=== PATIENT | female | born 1985 | race Caucasian/White ===

== ENCOUNTER 2019-02-19 19:49 | Emergency (ER) | payer OTHER ==
[2019-02-19] MEDS ORDERED: Albuterol/Ipratropium Neb 3 ML AERS HHN ONE ×3 (19:55→20:20)
--- NOTE | 2019-02-19 20:14 | ED Physician Chart ---
ED Chief Complaint/HPI - Patient Information Date Seen:: 02/19/19 Time Seen:: 20:09 Chief Complaint:: asthma exacerbation History of Present Illness:: 34 yr old female with trouble breathing hx of asthma was at the urgent care today and to start prednisone tomorrow Allergies:: Allergies Allergy/AdvReac Type Severity Reaction Status Date / Time No Known Allergies Allergy Verified 02/19/19 20:02 Vitals:: Vital Signs - 8 hr 02/19/19 02/19/19 19:50 19:56 Temp 98.1 F HR 101 104 RR 24 22 BP 146/99 O2 Sat % 98 98 ED Review of Systems - Review of Systems General/Constitutional: No fever, No chills, No weight loss, No weakness, No diaphoresis, No edema, No loss of appetite Skin: No skin lesions, No rash, No bruising Head: No headache, No light-headedness Eyes: No loss of vision, No pain, No diplopia ENT: No earache, No nasal drainage, No sore throat, No tinnitus Neck: No neck pain, No swelling, No thyromegaly, No stiffness, No mass noted Cardio Vascular: No chest pain, No palpitations, No PND, No orthopnea, No edema Pulmonary: Cough, Wheezing GI: No nausea, No vomiting, No diarrhea, No pain, No melena, No hematochezia, No constipation, No hematemesis G/U: No dysuria, No frequency, No hematuria Musculoskeletal: No bone or joint pain, No back pain, No muscle pain Endocrine: No polyuria, No polydipsia Psychiatric: No prior psych history, No depression, No anxiety, No suicidal ideation Hematopoietic: No bruising, No lymphadenopathy Allergic/Immuno: No urticaria, No angioedema Neurological: No syncope, No focal symptoms, No weakness, No paresthesia, No headache, No seizure, No dizziness, No confusion, No vertigo ED Past Medical History - Past Medical History Past Medical History: Asthma/COPD Family Medical History - Family Member Father Name:: brain cancer uncle Hx Family Diabetes: Yes Other Medical History: asthma ED Physical Exam - Physical Examination General/Constitutional: Awake, Well-developed, well-nourished, Alert, No distress, GCS 15, Non-toxic appearing, Ambulatory Other Gen/Cons comments:: mild resp distress secondary to the asthma Head: Atraumatic Eyes: Lids, conjuctiva normal, PERRL, EOMI Skin: Nl inspection, No rash, No skin lesions, No ecchymosis, Well hydrated, No lymphadenopathy ENMT: External ears, nose nl, Nasal exam nl, Lips, teeth, gums nl Neck: Nontender, Full ROM w/o pain, No JVD, No nuchal rigidity, No bruit, No mass, No stridor Respiratory: Nl effort/Exclusion, Clear to Auscultation, No Wheeze/Rhonchi/Rales Cardio Vascular: RRR, No murmur, gallop, rubs, NL S1 S2 GI: No tenderness/rebounding/guarding, No organomegaly, No hernia, Normal BS's, Nondistended, No mass/bruits, No McBurney tenderness : No CVA tenderness Extremities: No tenderness or effusion, Full ROM, normal strength in all extremities, No edema, Normal digits & nails Neuro/Psych: Alert/oriented, DTR's symmetric, Normal sensory exam, Normal motor strength, Judgement/insight normal, Mood normal, Normal gait, No focal deficits Misc: Normal back, No paraspinal tenderness ED Assessment - Assessment General Assessment: asthma exacerbation ED Septic Shock - . Is Septic Shock (SBP<90, OR Lactate>4 mmol\L) present?: No - <6hrs of presentation: Vital Signs: Vital Signs - 8 hr 02/19/19 02/19/19 19:50 19:56 Temp 98.1 F HR 101 104 RR 24 22 BP 146/99 O2 Sat % 98 98 ED Reassessment (Disposition) - Reassessment Reassessment:: asthma exacerbation - Diagnosis Diagnosis:: asthma exacerbation - Aftercare/Follow up Instructions Medication Prescribed:: zpack - Patient Disposition Discharge/Transfer:: Home Condition at Disposition:: Stable
[2019-02-19] MEDS ORDERED: Dexamethasone Sodium Phos 4 mg/mL Vial INH STA (20:16)
[2019-02-19] MEDS ORDERED: Dexamethasone Sodium Phos 4 mg/mL Vial ONE (20:26)
== END 2019-02-19 21:00 | disposition home or self-care (01) ==
LOC: ER 19:49
DX: J45.901 Unspecified asthma with (acute) exacerbation (principal)
CPT/HCPCS: 99285; 96372; 94640 ×3; 81025; J1100; J2930

== ENCOUNTER 2019-02-25 15:09 | Inpatient (IN) | payer OTHER ==
--- NOTE | 2019-02-25 15:36 | ED Physician Chart ---
ED Chief Complaint/HPI - Patient Information Date Seen:: 02/25/19 Time Seen:: 15:30 Chief Complaint:: asthma attack History of Present Illness:: this is a 34 yo female who is concerned about her asthma attack after being sent here from an urgent care clinic for more definitive treatment. 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 she denies pneumonia but has a long history of allergies to cockroaches. Allergies:: Allergies Allergy/AdvReac Type Severity Reaction Status Date / Time No Known Allergies Allergy Verified 02/19/19 20:02 Vitals:: Vital Signs - 8 hr 02/25/19 15:16 Temp 98.0 F HR 135 RR 16 BP 135/82 O2 Sat % 96 Historian:: Patient Review:: Nurse's Note Reviewed, Old Chart Reviewed ED Review of Systems - Review of Systems General/Constitutional: No fever, No chills, No weight loss, No weakness, No diaphoresis, No edema, No loss of appetite Skin: No skin lesions, No rash, No bruising Head: No headache, No light-headedness Eyes: No loss of vision, No pain, No diplopia ENT: No earache, No nasal drainage, No sore throat, No tinnitus Neck: No neck pain, No swelling, No thyromegaly, No stiffness, No mass noted Cardio Vascular: No chest pain, No palpitations, No PND, No orthopnea, No edema Pulmonary: No SOB, Cough, No sputum, Wheezing GI: No nausea, No vomiting, No diarrhea, No pain, No melena, No hematochezia, No constipation, No hematemesis G/U: No dysuria, No frequency, No hematuria Musculoskeletal: No bone or joint pain, No back pain, No muscle pain Endocrine: No polyuria, No polydipsia Psychiatric: No prior psych history, No depression, No anxiety, No suicidal ideation Hematopoietic: No bruising, No lymphadenopathy Allergic/Immuno: No urticaria, No angioedema Neurological: No syncope, No focal symptoms, No weakness, No paresthesia, No headache, No seizure, No dizziness, No confusion, No vertigo ED Past Medical History - Past Medical History Obtainable: Yes Past Medical History: Asthma/COPD Family History: None Social History: Non Smoker, No Alcohol, No Drug Use, Surgical History: other (liposculpture) Psychiatricy History: None Medication: Reviewed Family Medical History - Family Member Father History Unknown: Yes Hx Family Diabetes: Yes ED Physical Exam - Physical Examination General/Constitutional: Awake, Well-developed, well-nourished, Alert, No distress, GCS 15, Non-toxic appearing, Ambulatory Head: Atraumatic Eyes: Lids, conjuctiva normal, PERRL, EOMI Skin: Nl inspection, No rash, No skin lesions, No ecchymosis, Well hydrated, No lymphadenopathy ENMT: External ears, nose nl, Nasal exam nl, Lips, teeth, gums nl Neck: Nontender, Full ROM w/o pain, No JVD, No nuchal rigidity, No bruit, No mass, No stridor Respiratory: Nl effort/Exclusion, Clear to Auscultation, No Wheeze/Rhonchi/ Rales (few wheezes heard bilaterally) Cardio Vascular: RRR, No murmur, gallop, rubs, NL S1 S2 GI: No tenderness/rebounding/guarding, No organomegaly, No hernia, Normal BS's, Nondistended, No mass/bruits, No McBurney tenderness : No CVA tenderness Extremities: No tenderness or effusion, Full ROM, normal strength in all extremities, No edema, Normal digits & nails Neuro/Psych: Alert/oriented, DTR's symmetric, Normal sensory exam, Normal motor strength, Judgement/insight normal, Mood normal, Normal gait, No focal deficits Misc: Normal back, No paraspinal tenderness ED Labs/Radiology/EKG Results - Lab Results Results: Abnormal Lab Results 02/25/19 02/25/19 02/25/19 15:40 15:40 15:40 WBC 14.2 H RBC 4.87 Hgb 13.8 Hct 42.1 MCV 86.5 MCH 28.4 MCHC Differential 32.8 RDW 12.6 Plt Count 347 MPV 7.5 Add Manual Diff YES D-Dimer 227 Specimen Source Sample Site pH pCO2 pO2 HCO3 Base Excess O2 Saturation Marquise Test Vent Rate Inspired O2 Tidal Volume PEEP Pressure (ins/psv/peep) Critical Value Sodium 134 L Potassium 3.3 L Chloride 101 Carbon Dioxide 19.1 L Anion Gap 17.2 H BUN 13 Creatinine 0.9 Est GFR ( Amer) > 60.0 Est GFR (Non-Af Amer) > 60.0 BUN/Creatinine Ratio 14.4 Glucose 311 H Calcium 9.3 Total Bilirubin 0.4 AST 11 L ALT 13 Alkaline Phosphatase 85 Troponin I Total Protein 7.5 Albumin 4.5 Globulin 3.0 Albumin/Globulin Ratio 1.5 TSH Urine Source Urine Color Urine Clarity Urine pH Ur Specific [place] Urine Protein Urine Glucose (UA) Urine Ketones Urine Blood Urine Nitrate Urine Bilirubin Urine Urobilinogen Ur Leukocyte Esterase Urine RBC Urine WBC Ur Epithelial Cells Urine Bacteria Urine Test Urine Opiates Screen Urine Methadone Screen Ur Barbiturates Screen Ur Tricyclics Screen Ur Phencyclidine Scrn Amphetamines Screen U Methamphetamines Scrn U Benzodiazepines Scrn U Cocaine Metab Screen U Cannabinoids Screen Serum Ketones 02/25/19 02/25/19 02/25/19 15:40 15:40 15:45 WBC RBC Hgb Hct MCV MCH MCHC Differential RDW Plt Count MPV Add Manual Diff D-Dimer Specimen Source Sample Site pH pCO2 pO2 HCO3 Base Excess O2 Saturation Marquise Test Vent Rate Inspired O2 Tidal Volume PEEP Pressure (ins/psv/peep) Critical Value Sodium Potassium Chloride Carbon Dioxide Anion Gap BUN Creatinine Est GFR ( Amer) Est GFR (Non-Af Amer) BUN/Creatinine Ratio Glucose Calcium Total Bilirubin AST ALT Alkaline Phosphatase Troponin I < 0.01 L Total Protein Albumin Globulin Albumin/Globulin Ratio TSH 0.72 Urine Source Urine Color Urine Clarity Urine pH Ur Specific [place] Urine Protein Urine Glucose (UA) Urine Ketones Urine Blood Urine Nitrate Urine Bilirubin Urine Urobilinogen Ur Leukocyte Esterase Urine RBC Urine WBC Ur Epithelial Cells Urine Bacteria Urine Test NEGATIVE Urine Opiates Screen Urine Methadone Screen Ur Barbiturates Screen Ur Tricyclics Screen Ur Phencyclidine Scrn Amphetamines Screen U Methamphetamines Scrn U Benzodiazepines Scrn U Cocaine Metab Screen U Cannabinoids Screen Serum Ketones 02/25/19 02/25/19 02/25/19 15:45 17:37 18:05 WBC RBC Hgb Hct MCV MCH MCHC Differential RDW Plt Count MPV Add Manual Diff D-Dimer Specimen Source Sample Site pH pCO2 pO2 HCO3 Base Excess O2 Saturation Marquise Test Vent Rate Inspired O2 Tidal Volume PEEP Pressure (ins/psv/peep) Critical Value Sodium 135 L Potassium 4.5 Chloride 105 Carbon Dioxide 15.7 L Anion Gap 18.8 H BUN 12 Creatinine 0.9 Est GFR ( Amer) > 60.0 Est GFR (Non-Af Amer) > 60.0 BUN/Creatinine Ratio 13.3 Glucose 271 H Calcium 9.6 Total Bilirubin AST ALT Alkaline Phosphatase Troponin I Total Protein Albumin Globulin Albumin/Globulin Ratio TSH Urine Source CLEAN C Urine Color YELLOW Urine Clarity CLEAR Urine pH 5.5 Ur Specific [place] 1.025 Urine Protein NEGATIVE Urine Glucose (UA) >=1000 H Urine Ketones 40 H Urine Blood SMALL H Urine Nitrate NEGATIVE Urine Bilirubin NEGATIVE Urine Urobilinogen 0.2 Ur Leukocyte Esterase SMALL H Urine RBC 2-5 Urine WBC 6-10 H Ur Epithelial Cells MODERATE Urine Bacteria 1+ H Urine Test Urine Opiates Screen NEGATIVE Urine Methadone Screen NEGATIVE Ur Barbiturates Screen NEGATIVE Ur Tricyclics Screen NEGATIVE Ur Phencyclidine Scrn NEGATIVE Amphetamines Screen NEGATIVE U Methamphetamines Scrn NEGATIVE U Benzodiazepines Scrn NEGATIVE U Cocaine Metab Screen NEGATIVE U Cannabinoids Screen NEGATIVE Serum Ketones 02/25/19 02/25/19 18:47 19:00 WBC RBC Hgb Hct MCV MCH MCHC Differential RDW Plt Count MPV Add Manual Diff D-Dimer Specimen Source ARTERIAL Sample Site Right Radial pH 7.467 H pCO2 22.0 L* pO2 96.9 HCO3 15.5 L Base Excess -5.8 L O2 Saturation 97.9 Marquise Test Positive Vent Rate N/A Inspired O2 21 Tidal Volume N/A PEEP N/A Pressure (ins/psv/peep) N/A 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,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 Sodium Potassium Chloride Carbon Dioxide Anion Gap BUN Creatinine Est GFR ( Amer) Est GFR (Non-Af Amer) BUN/Creatinine Ratio Glucose Calcium Total Bilirubin AST ALT Alkaline Phosphatase Troponin I Total Protein Albumin Globulin Albumin/Globulin Ratio TSH Urine Source Urine Color Urine Clarity Urine pH Ur Specific [place] Urine Protein Urine Glucose (UA) Urine Ketones Urine Blood Urine Nitrate Urine Bilirubin Urine Urobilinogen Ur Leukocyte Esterase Urine RBC Urine WBC Ur Epithelial Cells Urine Bacteria Urine Test Urine Opiates Screen Urine Methadone Screen Ur Barbiturates Screen Ur Tricyclics Screen Ur Phencyclidine Scrn Amphetamines Screen U Methamphetamines Scrn U Benzodiazepines Scrn U Cocaine Metab Screen U Cannabinoids Screen Serum Ketones NEGATIVE - Radiology Results Results: chest x-ray = normal chest x-ray - EKG Interpretations EKG Time:: 16:06 Rate & Rhythm: rate= 124, sinus tach [place]: right ED Assessment - Assessment General Assessment: chest pain tachycardia acidosis urinary tract infection ED Septic Shock - . Is Septic Shock (SBP<90, OR Lactate>4 mmol\L) present?: No - <6hrs of presentation: Vital Signs: Vital Signs - 8 hr 02/25/19 15:16 Temp 98.0 F HR 135 RR 16 BP 135/82 O2 Sat % 96 ED Reassessment (Disposition) - Reassessment Reassessment Condition:: Improved - Diagnosis Diagnosis:: chest pain acicosis urinary tract infection diabetes mellitus - Patient Disposition Discharge/Transfer:: Acute Care w/in this hosp Admitted to:: Telemetry Admitting Medical Physician:: Brenda Pierce Condition at Disposition:: Improved
[2019-02-25 15:56] LABS: URINE SOURCE CLEAN C
[2019-02-25 15:56] LABS: HEMATOCRIT 42.1 % (41.0-60); HEMOGLOBIN 13.8 gm/dL (12-16); MEAN CELL VOLUME 86.5 fl (81-100); MEAN CORPUSCULAR HEMOGLOBIN 28.4 pg (27.0-31.0); MEAN CORPUSCULAR HGB CONC 32.8 pg (28.0-36.0); MEAN PLATELET VOLUME 7.5 fl; PLATELET COUNT 347 Th/cmm (150-400); RED BLOOD COUNT 4.87 Mil/cmm (3.80-5.10); RED CELL DISTRIBUTION WIDTH 12.6 % (11.5-20.0); WHITE BLOOD COUNT 14.2 Th/cmm (4.8-10.8)
[2019-02-25 16:05] LABS: URINE CLARITY CLEAR (CLEAR); URINE COLOR YELLOW
[2019-02-25 16:06] LABS: URINE BLOOD SMALL (NEGATIVE); URINE GLUCOSE (UA) >=1000 mg/dL (NEGATIVE); URINE KETONE 40 mg/dL (NEGATIVE); URINE LEUKOCYTE ESTERASE SMALL (NEGATIVE); URINE MICROSCOPIC INDICATED? YES; URINE NITRATE NEGATIVE (NEGATIVE); URINE PH 5.5 (4.6 - 8.0); URINE PROTEIN NEGATIVE (NEGATIVE); URINE UROBILINOGEN 0.2 E.U./dL (0.2 - 1.0)
[2019-02-25 16:07] LABS: URINE BILIRUBIN NEGATIVE (NEGATIVE)
[2019-02-25 16:09] LABS: URINE BACTERIA 1+ /hpf (NONE SEEN); URINE EPITHELIAL CELLS MODERATE /lpf (FEW)
[2019-02-25 16:17] LABS: ALB/GLOB RATIO 1.5 (1.0-1.8); ALBUMIN 4.5 gm/dL (3.7-5.3); ALKALINE PHOSPHATASE 85 U/L (34-104); ANION GAP 17.2 (7.0-16.0); BILIRUBIN,TOTAL 0.4 mg/dL (0.3-1.0); BUN - UREA NITROGEN 13 mg/dL (7-25); CALCIUM SERUM 9.3 mg/dL (8.6-10.3); CARBON DIOXIDE 19.1 mEq/L (21.0-31.0); CHLORIDE 101 mEq/L (98-107); CREATININE - SERUM 0.9 mg/dL (0.6-1.2); GFR AFRICAN-AMERICAN > 60.0 ml/min (>90); GFR NON AFRICAN-AMERICAN > 60.0 ml/min; GLUCOSE 311 mg/dL (70-105); POTASSIUM SERUM 3.3 mEq/L (3.5-5.1); SGOT 11 U/L (13-39); SGPT/ALT 13 U/L (7-52); SODIUM SERUM 134 mEq/L (136-145); TOTAL PROTEIN,SERUM 7.5 gm/dL (6.0-8.3)
[2019-02-25] MEDS ORDERED: Potassium Chloride Elixir 20 mEq /15 mL UDC PO ONE (16:22)
[2019-02-25] MEDS ORDERED: Sodium Chloride 0.45% 1,000 ML IV ONE (16:22)
[2019-02-25] MEDS ORDERED: Potassium Chloride Elixir 20 mEq /15 mL UDC ONE (16:25)
[2019-02-25 18:00] LABS: AMPHETAMINE URINE NEGATIVE (NEGATIVE); BARBITURATES URINE NEGATIVE (NEGATIVE); PHENCYCLIDINE (PCP) URINE NEGATIVE (NEGATIVE)
[2019-02-25 18:01] LABS: BENZODIAZEPINES QUAL URINE NEGATIVE (NEGATIVE); CANNABINOID THC NEGATIVE (NEGATIVE); COCAINE METABOLITE QUAL URINE NEGATIVE (NEGATIVE); METHADONE URINE NEGATIVE (NEGATIVE); METHAMPHETAMINES QUAL URINE NEGATIVE (NEGATIVE); OPIATES (MORPHINE) QUAL. URINE NEGATIVE (NEGATIVE); TRICYCLICS (TCA) QUAL. URINE NEGATIVE (NEGATIVE)
[2019-02-25 18:24] LABS: ANION GAP 18.8 (7.0-16.0); BUN - UREA NITROGEN 12 mg/dL (7-25); CALCIUM SERUM 9.6 mg/dL (8.6-10.3); CARBON DIOXIDE 15.7 mEq/L (21.0-31.0); CHLORIDE 105 mEq/L (98-107); CREATININE - SERUM 0.9 mg/dL (0.6-1.2); GFR AFRICAN-AMERICAN > 60.0 ml/min (>90); GFR NON AFRICAN-AMERICAN > 60.0 ml/min; GLUCOSE 271 mg/dL (70-105); POTASSIUM SERUM 4.5 mEq/L (3.5-5.1); SODIUM SERUM 135 mEq/L (136-145)
[2019-02-25 19:08] LABS: ALLEN TEST Positive; PaO2 96.9 mmHg (80.0-100.0); pH 7.467 (7.35-7.45); sO2c 97.9 % (92.0-100.0)
[2019-02-25] MEDS ORDERED: Sodium Chloride 0.9% 1,000 ML IV ONE (19:39)
[2019-02-25 22:19] VITALS: BP 122/80
[2019-02-26] MEDS: Levofloxacin 500mg/100mL 500 MG/100 ML BAG IV SCH (04:12)
[2019-02-26 05:14] LABS: EOSINOPHILE ABSOLUTE 0.1 Th/cmm (0.1-0.4); HEMATOCRIT 40.2 % (41.0-60); HEMOGLOBIN 13.4 gm/dL (12-16); LYMPHOCYTE ABSOLUTE 1.4 Th/cmm (1.5-3.0); MEAN CELL VOLUME 85.8 fl (81-100); MEAN CORPUSCULAR HEMOGLOBIN 28.6 pg (27.0-31.0); MEAN CORPUSCULAR HGB CONC 33.4 pg (28.0-36.0); MEAN PLATELET VOLUME 7.6 fl; MONOCYTE ABSOLUTE 0.5 Th/cmm (0.3-1.0); PLATELET COUNT 343 Th/cmm (150-400); RED BLOOD COUNT 4.68 Mil/cmm (3.80-5.10); RED CELL DISTRIBUTION WIDTH 12.6 % (11.5-20.0)
[2019-02-26 05:29] LABS: ANION GAP 12.8 (7.0-16.0); BUN - UREA NITROGEN 9 mg/dL (7-25); CALCIUM SERUM 9.2 mg/dL (8.6-10.3); CHLORIDE 106 mEq/L (98-107); CREATININE - SERUM 0.6 mg/dL (0.6-1.2); GFR AFRICAN-AMERICAN > 60.0 ml/min (>90); GFR NON AFRICAN-AMERICAN > 60.0 ml/min
[2019-02-26 06:52] LABS: BAND NEUTROPHILE 0 % (0-10); BASOPHIL 0 % (0-3); EOSINOPHIL 0 % (0-5); LYMPHOCYTE 8 % (20-50); MONOCYTE 3 % (2-10); NEUTROPHILS 89 % (40-80)
[2019-02-26 06:53] LABS: PLATELET ESTIMATE ADEQUATE (NORMAL)
[2019-02-26 07:53] LABS: GLUCOSE 165 mg/dL (70-105)
[2019-02-26 07:54] LABS: SODIUM SERUM 135 mEq/L (136-145)
[2019-02-26 07:56] LABS: CARBON DIOXIDE 20.2 mEq/L (21.0-31.0)
[2019-02-26] MEDS ORDERED: Albuterol/Ipratropium Neb 3 ML AERS HHN PRN (09:11)
--- NOTE | 2019-02-26 10:23 | Diagnostic Imaging Report ---
Portable chest x-ray History: Shortness of breath Allowing for portable technique the heart size is normal. No focal pulmonary parenchymal processes. No hilar or mediastinal abnormalities. Impression: No acute abnormalities.
--- NOTE | 2019-02-26 15:16 | Consultation ---
Consult Note - Consult Note Service Date: 02/26/19 Referring Physician: Brenda Pierce Consult Note: PHYSICIAN Consultation Note: Date of Admission: 02/25/19 Purpose of Consultation: Leukocytosis, Chief Complaint: Patient JOSE CASTORENA was admitted to [facility] Telemetry with CHEST PAIN,TACHYCARDIA,ACIDOSIS. History of Present Illness: 34 year old female with history of asthma, presented to the ED for chest pains. On initial evaluation, her temperature was 98.4F and WBC Count was 14,200. Her WBC count went up to 22,000. ID consult was called for antibiotic management. Past Medical History: DM2, GERD, anxiety disorder, and asthma. Allergies Allergy/AdvReac Type Severity Reaction Status Date / Time No Known Allergies Allergy Verified 02/19/19 20:02 Vital Signs Temp 98.4 F 02/26/19 11:38 Pulse 95 02/26/19 11:38 Resp 18 02/26/19 11:38 BP 106/66 02/26/19 11:38 Pulse Ox 99 02/26/19 11:38 Intake & Output 02/25/19 02/26/19 02/26/19 18:59 06:59 18:59 Intake Total 2500 Balance 2500 Weight (lbs) 77.111 kg 79.379 kg Intake: Intake, IV Amount 2000 Sodium Chloride 0.45% 1, 1000 000 ml @ Wide Open IV . Q0M ONE Rx#:[id number] Oral 500 Other: # Voids 5 Weight Source Patient stated Bedscale Laboratory Results - last 24 hr 02/25/19 02/25/19 02/25/19 15:40 15:40 15:40 WBC 14.2 H RBC 4.87 Hgb 13.8 Hct 42.1 MCV 86.5 MCH 28.4 MCHC Differential 32.8 RDW 12.6 Plt Count 347 MPV 7.5 Add Manual Diff YES Band Neutrophils % Neutrophils (Manual) Lymphocytes Monocytes Eosinophils Basophils Platelet Estimate D-Dimer 227 Specimen Source Sample Site pH pCO2 pO2 HCO3 Base Excess O2 Saturation Marquise Test Vent Rate Inspired O2 Tidal Volume PEEP Pressure (ins/psv/peep) Critical Value Sodium 134 L Potassium 3.3 L Chloride 101 Carbon Dioxide 19.1 L Anion Gap 17.2 H BUN 13 Creatinine 0.9 Est GFR ( Amer) > 60.0 Est GFR (Non-Af Amer) > 60.0 BUN/Creatinine Ratio 14.4 Glucose 311 H POC Glucose Calcium 9.3 Total Bilirubin 0.4 AST 11 L ALT 13 Alkaline Phosphatase 85 Troponin I Total Protein 7.5 Albumin 4.5 Globulin 3.0 Albumin/Globulin Ratio 1.5 TSH Urine Source Urine Color Urine Clarity Urine pH Ur Specific [place] Urine Protein Urine Glucose (UA) Urine Ketones Urine Blood Urine Nitrate Urine Bilirubin Urine Urobilinogen Ur Leukocyte Esterase Urine RBC Urine WBC Ur Epithelial Cells Urine Bacteria Urine Test Urine Opiates Screen Urine Methadone Screen Ur Barbiturates Screen Ur Tricyclics Screen Ur Phencyclidine Scrn Amphetamines Screen U Methamphetamines Scrn U Benzodiazepines Scrn U Cocaine Metab Screen U Cannabinoids Screen Serum Ketones 02/25/19 02/25/19 02/25/19 15:40 15:40 15:45 WBC RBC Hgb Hct MCV MCH MCHC Differential RDW Plt Count MPV Add Manual Diff Band Neutrophils % Neutrophils (Manual) Lymphocytes Monocytes Eosinophils Basophils Platelet Estimate D-Dimer Specimen Source Sample Site pH pCO2 pO2 HCO3 Base Excess O2 Saturation Marquise Test Vent Rate Inspired O2 Tidal Volume PEEP Pressure (ins/psv/peep) Critical Value Sodium Potassium Chloride Carbon Dioxide Anion Gap BUN Creatinine Est GFR ( Amer) Est GFR (Non-Af Amer) BUN/Creatinine Ratio Glucose POC Glucose Calcium Total Bilirubin AST ALT Alkaline Phosphatase Troponin I < 0.01 L Total Protein Albumin Globulin Albumin/Globulin Ratio TSH 0.72 Urine Source Urine Color Urine Clarity Urine pH Ur Specific [place] Urine Protein Urine Glucose (UA) Urine Ketones Urine Blood Urine Nitrate Urine Bilirubin Urine Urobilinogen Ur Leukocyte Esterase Urine RBC Urine WBC Ur Epithelial Cells Urine Bacteria Urine Test NEGATIVE Urine Opiates Screen Urine Methadone Screen Ur Barbiturates Screen Ur Tricyclics Screen Ur Phencyclidine Scrn Amphetamines Screen U Methamphetamines Scrn U Benzodiazepines Scrn U Cocaine Metab Screen U Cannabinoids Screen Serum Ketones 02/25/19 02/25/19 02/25/19 15:45 17:37 18:05 WBC RBC Hgb Hct MCV MCH MCHC Differential RDW Plt Count MPV Add Manual Diff Band Neutrophils % Neutrophils (Manual) Lymphocytes Monocytes Eosinophils Basophils Platelet Estimate D-Dimer Specimen Source Sample Site pH pCO2 pO2 HCO3 Base Excess O2 Saturation Marquise Test Vent Rate Inspired O2 Tidal Volume PEEP Pressure (ins/psv/peep) Critical Value Sodium 135 L Potassium 4.5 Chloride 105 Carbon Dioxide 15.7 L Anion Gap 18.8 H BUN 12 Creatinine 0.9 Est GFR ( Amer) > 60.0 Est GFR (Non-Af Amer) > 60.0 BUN/Creatinine Ratio 13.3 Glucose 271 H POC Glucose Calcium 9.6 Total Bilirubin AST ALT Alkaline Phosphatase Troponin I Total Protein Albumin Globulin Albumin/Globulin Ratio TSH Urine Source CLEAN C Urine Color YELLOW Urine Clarity CLEAR Urine pH 5.5 Ur Specific [place] 1.025 Urine Protein NEGATIVE Urine Glucose (UA) >=1000 H Urine Ketones 40 H Urine Blood SMALL H Urine Nitrate NEGATIVE Urine Bilirubin NEGATIVE Urine Urobilinogen 0.2 Ur Leukocyte Esterase SMALL H Urine RBC 2-5 Urine WBC 6-10 H Ur Epithelial Cells MODERATE Urine Bacteria 1+ H Urine Test Urine Opiates Screen NEGATIVE Urine Methadone Screen NEGATIVE Ur Barbiturates Screen NEGATIVE Ur Tricyclics Screen NEGATIVE Ur Phencyclidine Scrn NEGATIVE Amphetamines Screen NEGATIVE U Methamphetamines Scrn NEGATIVE U Benzodiazepines Scrn NEGATIVE U Cocaine Metab Screen NEGATIVE U Cannabinoids Screen NEGATIVE Serum Ketones 02/25/19 02/25/19 02/25/19 18:47 19:00 22:12 WBC RBC Hgb Hct MCV MCH MCHC Differential RDW Plt Count MPV Add Manual Diff Band Neutrophils % Neutrophils (Manual) Lymphocytes Monocytes Eosinophils Basophils Platelet Estimate D-Dimer Specimen Source ARTERIAL Sample Site Right Radial pH 7.467 H pCO2 22.0 L* pO2 96.9 HCO3 15.5 L Base Excess -5.8 L O2 Saturation 97.9 Marquise Test Positive Vent Rate N/A Inspired O2 21 Tidal Volume N/A PEEP N/A Pressure (ins/psv/peep) N/A 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,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 Sodium Potassium Chloride Carbon Dioxide Anion Gap BUN Creatinine Est GFR ( Amer) Est GFR (Non-Af Amer) BUN/Creatinine Ratio Glucose POC Glucose 159 H Calcium Total Bilirubin AST ALT Alkaline Phosphatase Troponin I Total Protein Albumin Globulin Albumin/Globulin Ratio TSH Urine Source Urine Color Urine Clarity Urine pH Ur Specific [place] Urine Protein Urine Glucose (UA) Urine Ketones Urine Blood Urine Nitrate Urine Bilirubin Urine Urobilinogen Ur Leukocyte Esterase Urine RBC Urine WBC Ur Epithelial Cells Urine Bacteria Urine Test Urine Opiates Screen Urine Methadone Screen Ur Barbiturates Screen Ur Tricyclics Screen Ur Phencyclidine Scrn Amphetamines Screen U Methamphetamines Scrn U Benzodiazepines Scrn U Cocaine Metab Screen U Cannabinoids Screen Serum Ketones NEGATIVE 02/26/19 02/26/19 02/26/19 05:00 05:00 11:25 WBC 22.0 H* D RBC 4.68 Hgb 13.4 Hct 40.2 L MCV 85.8 MCH 28.6 MCHC Differential 33.4 RDW 12.6 Plt Count 343 MPV 7.6 Add Manual Diff YES Band Neutrophils % 0 Neutrophils (Manual) 89 H Lymphocytes 8 L Monocytes 3 Eosinophils 0 Basophils 0 Platelet Estimate ADEQUATE D-Dimer Specimen Source Sample Site pH pCO2 pO2 HCO3 Base Excess O2 Saturation Marquise Test Vent Rate Inspired O2 Tidal Volume PEEP Pressure (ins/psv/peep) Critical Value Sodium 135 L Potassium 4.0 Chloride 106 Carbon Dioxide 20.2 L Anion Gap 12.8 BUN 9 Creatinine 0.6 Est GFR ( Amer) > 60.0 Est GFR (Non-Af Amer) > 60.0 BUN/Creatinine Ratio 15.0 Glucose 165 H D POC Glucose 142 H Calcium 9.2 Total Bilirubin AST ALT Alkaline Phosphatase Troponin I Total Protein Albumin Globulin Albumin/Globulin Ratio TSH Urine Source Urine Color Urine Clarity Urine pH Ur Specific [place] Urine Protein Urine Glucose (UA) Urine Ketones Urine Blood Urine Nitrate Urine Bilirubin Urine Urobilinogen Ur Leukocyte Esterase Urine RBC Urine WBC Ur Epithelial Cells Urine Bacteria Urine Test Urine Opiates Screen Urine Methadone Screen Ur Barbiturates Screen Ur Tricyclics Screen Ur Phencyclidine Scrn Amphetamines Screen U Methamphetamines Scrn U Benzodiazepines Scrn U Cocaine Metab Screen U Cannabinoids Screen Serum Ketones Home Medication Medication Instructions Recorded Type Azithromycin [Zithromax] 250 mg PO UD #6 tab 02/19/19 Rx Current Medications Generic Name Dose Route Start Last Admin Trade Name Freq PRN Reason Stop Dose Admin Albuterol/Ipratropium 3 ml 02/26/19 09:11 02/26/19 09:22 Duoneb [facility] 04/27/19 09:10 3 ml Q2H PRN Administration Shortness of Breath or Wheeze Albuterol/Ipratropium 3 ml 02/26/19 19:00 Duoneb [facility] 04/27/19 18:59 Q6HRT FELIPE Hydroxyzine HCl 25 mg 02/26/19 09:42 Atarax PO 04/27/19 09:41 Q6H PRN Anxiety Protocol Levofloxacin 500 mg in 100 mls @ 100 mls/hr 02/26/19 05:00 02/26/19 04:12 Levaquin Pb IV 04/27/19 04:59 100 mls/hr Q24HR FELIPE Administration Methylprednisolone Sodium Succinate 40 mg 02/26/19 13:47 02/26/19 13:52 Solu-Medrol IVP 02/27/19 13:47 Not Given Q8H FELIPE Symbicort Inhaler 1 02/26/19 20:00 INH 04/27/19 19:59 BID FELIPE Review of Systems: A 12 point ROS was reviewed with the pertinent positive and negatives noted in the HPI. Social History Smoking Status Never smoker Drug Use No Alcohol Use No Family Medical History DM2 Physical Exam: General: Comfortable, not in any acute distress. HEENT: HEad: NC NT. ORal Cavity: moist, pink tongue,. Eyes: no pallor, no icterus. Pupil PERRLA. EOMI. Face symmetrical. Neck: Supple, no JVD, no carotid bruit. no thyromegaly. no use of accessory neck muscle use. Cardio: S1 and S2 WNL./ no murmur no gallop. Respiratory: Vesicular breath sounds, Abdominal: soft NT ND BS present. Genital/Urinary: Extremities: NCCE Neurological: AAOx3. no neurodeficit. Assessment: 1. Leukocytosis. reactive versus, sepsis. 2. Asthma exacerbation. 3. DM2. 4. Anxiety sdisorder. Plan: Her exam is benign. Will conitnue levaquin. will check CBC in am. Thank you, Dr Pierce for involving me in taking care of this patient. Signed, Werner Mena M.D. [id number]
--- NOTE | 2019-02-26 15:59 | History and Physical ---
History of Present Illness - HPI Chief Complaint: Asthma, Leukocytosis HPI: 34yo F with hx of asthma and anxiety, presented to ED for chest pain. Reports being treated with steroids and inhalers over the last 1-2 weeks for her asthma. Pt was noted to have an elevated WBC count Vital Signs: Last Vital Signs Temp 98.8 F 02/26/19 15:39 Pulse 85 02/26/19 15:39 Resp 18 02/26/19 15:39 BP 118/64 02/26/19 15:39 Pulse Ox 100 02/26/19 15:39 Past Medical History Pulmonary: Report: Asthma GI: Report: GERD Psych: Report: Anxiety Other History: Migrain, vertigo, allergies Family Medical History - Family Member Father History Unknown: Yes Hx Family Hypertension: Yes Hx Family Diabetes: Yes Social History Smoke: No Alcohol: Social Drugs: None Lives: With Family - Medications Home Medications: Home Medication Medication Instructions Recorded Type Azithromycin [Zithromax] 250 mg PO UD #6 tab 02/19/19 Rx Other Medications: symbicort ventolin albuterol "anxiety med"- last taken 2 months ago - Allergies Allergies/Adverse Reactions: Allergies Allergy/AdvReac Type Severity Reaction Status Date / Time No Known Allergies Allergy Verified 02/19/19 20:02 Review of Systems - Review of Systems Constitutional: Report: No Significant Eyes: Report: No Significant ENT: Report: No Significant Respiratory: Report: Shortness of Breath, Wheezing Cardiovascular: Report: No Significant, Palpitations Gastrointestinal: Report: No Significant Genitourinary: Report: Frequency Musculoskeletal: Report: No Significant Skin: Report: No Significant Neurological: Report: No Significant Physical Exam - Physical Exam HEENT: Report: Ears Nose Throat within normal limits Neck: Report: Within normal limits Cardiovascular Systems: Report: +s1/s2 noted, Regular, Rate and Rhythm, no murmurs noted, No JVD Present Respiratory: Report: Breath Sounds are within normal limits, Chest is non- tender to palpation. Abdomen: Report: Non-tender to palpation Back: Report: Inspection of back is within normal limits. Extremities: Report: Non-tender to palpation. Skin: Report: Color of skin is within normal limits, Warm Neuro/Psych: Report: Mood affect is within normal limits, A+Ox3, No sensory deficit - Lab Results All Lab Results last 24 hours: Laboratory Results - last 24 hr 02/25/19 02/25/19 02/25/19 15:40 15:40 15:40 WBC 14.2 H RBC 4.87 Hgb 13.8 Hct 42.1 MCV 86.5 MCH 28.4 MCHC Differential 32.8 RDW 12.6 Plt Count 347 MPV 7.5 Add Manual Diff YES Band Neutrophils % Neutrophils (Manual) Lymphocytes Monocytes Eosinophils Basophils Platelet Estimate D-Dimer 227 Specimen Source Sample Site pH pCO2 pO2 HCO3 Base Excess O2 Saturation Marquise Test Vent Rate Inspired O2 Tidal Volume PEEP Pressure (ins/psv/peep) Critical Value Sodium 134 L Potassium 3.3 L Chloride 101 Carbon Dioxide 19.1 L Anion Gap 17.2 H BUN 13 Creatinine 0.9 Est GFR ( Amer) > 60.0 Est GFR (Non-Af Amer) > 60.0 BUN/Creatinine Ratio 14.4 Glucose 311 H POC Glucose Calcium 9.3 Total Bilirubin 0.4 AST 11 L ALT 13 Alkaline Phosphatase 85 Troponin I Total Protein 7.5 Albumin 4.5 Globulin 3.0 Albumin/Globulin Ratio 1.5 TSH Urine Source Urine Color Urine Clarity Urine pH Ur Specific [place] Urine Protein Urine Glucose (UA) Urine Ketones Urine Blood Urine Nitrate Urine Bilirubin Urine Urobilinogen Ur Leukocyte Esterase Urine RBC Urine WBC Ur Epithelial Cells Urine Bacteria Urine Test Urine Opiates Screen Urine Methadone Screen Ur Barbiturates Screen Ur Tricyclics Screen Ur Phencyclidine Scrn Amphetamines Screen U Methamphetamines Scrn U Benzodiazepines Scrn U Cocaine Metab Screen U Cannabinoids Screen Serum Ketones 02/25/19 02/25/19 02/25/19 15:40 15:40 15:45 WBC RBC Hgb Hct MCV MCH MCHC Differential RDW Plt Count MPV Add Manual Diff Band Neutrophils % Neutrophils (Manual) Lymphocytes Monocytes Eosinophils Basophils Platelet Estimate D-Dimer Specimen Source Sample Site pH pCO2 pO2 HCO3 Base Excess O2 Saturation Marquise Test Vent Rate Inspired O2 Tidal Volume PEEP Pressure (ins/psv/peep) Critical Value Sodium Potassium Chloride Carbon Dioxide Anion Gap BUN Creatinine Est GFR ( Amer) Est GFR (Non-Af Amer) BUN/Creatinine Ratio Glucose POC Glucose Calcium Total Bilirubin AST ALT Alkaline Phosphatase Troponin I < 0.01 L Total Protein Albumin Globulin Albumin/Globulin Ratio TSH 0.72 Urine Source Urine Color Urine Clarity Urine pH Ur Specific [place] Urine Protein Urine Glucose (UA) Urine Ketones Urine Blood Urine Nitrate Urine Bilirubin Urine Urobilinogen Ur Leukocyte Esterase Urine RBC Urine WBC Ur Epithelial Cells Urine Bacteria Urine Test NEGATIVE Urine Opiates Screen Urine Methadone Screen Ur Barbiturates Screen Ur Tricyclics Screen Ur Phencyclidine Scrn Amphetamines Screen U Methamphetamines Scrn U Benzodiazepines Scrn U Cocaine Metab Screen U Cannabinoids Screen Serum Ketones 02/25/19 02/25/19 02/25/19 15:45 17:37 18:05 WBC RBC Hgb Hct MCV MCH MCHC Differential RDW Plt Count MPV Add Manual Diff Band Neutrophils % Neutrophils (Manual) Lymphocytes Monocytes Eosinophils Basophils Platelet Estimate D-Dimer Specimen Source Sample Site pH pCO2 pO2 HCO3 Base Excess O2 Saturation Marquise Test Vent Rate Inspired O2 Tidal Volume PEEP Pressure (ins/psv/peep) Critical Value Sodium 135 L Potassium 4.5 Chloride 105 Carbon Dioxide 15.7 L Anion Gap 18.8 H BUN 12 Creatinine 0.9 Est GFR ( Amer) > 60.0 Est GFR (Non-Af Amer) > 60.0 BUN/Creatinine Ratio 13.3 Glucose 271 H POC Glucose Calcium 9.6 Total Bilirubin AST ALT Alkaline Phosphatase Troponin I Total Protein Albumin Globulin Albumin/Globulin Ratio TSH Urine Source CLEAN C Urine Color YELLOW Urine Clarity CLEAR Urine pH 5.5 Ur Specific [place] 1.025 Urine Protein NEGATIVE Urine Glucose (UA) >=1000 H Urine Ketones 40 H Urine Blood SMALL H Urine Nitrate NEGATIVE Urine Bilirubin NEGATIVE Urine Urobilinogen 0.2 Ur Leukocyte Esterase SMALL H Urine RBC 2-5 Urine WBC 6-10 H Ur Epithelial Cells MODERATE Urine Bacteria 1+ H Urine Test Urine Opiates Screen NEGATIVE Urine Methadone Screen NEGATIVE Ur Barbiturates Screen NEGATIVE Ur Tricyclics Screen NEGATIVE Ur Phencyclidine Scrn NEGATIVE Amphetamines Screen NEGATIVE U Methamphetamines Scrn NEGATIVE U Benzodiazepines Scrn NEGATIVE U Cocaine Metab Screen NEGATIVE U Cannabinoids Screen NEGATIVE Serum Ketones 02/25/19 02/25/19 02/25/19 18:47 19:00 22:12 WBC RBC Hgb Hct MCV MCH MCHC Differential RDW Plt Count MPV Add Manual Diff Band Neutrophils % Neutrophils (Manual) Lymphocytes Monocytes Eosinophils Basophils Platelet Estimate D-Dimer Specimen Source ARTERIAL Sample Site Right Radial pH 7.467 H pCO2 22.0 L* pO2 96.9 HCO3 15.5 L Base Excess -5.8 L O2 Saturation 97.9 Marquise Test Positive Vent Rate N/A Inspired O2 21 Tidal Volume N/A PEEP N/A Pressure (ins/psv/peep) N/A 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,LOGISTICS SERVICE REPRESENTATIVE Sodium Potassium Chloride Carbon Dioxide Anion Gap BUN Creatinine Est GFR ( Amer) Est GFR (Non-Af Amer) BUN/Creatinine Ratio Glucose POC Glucose 159 H Calcium Total Bilirubin AST ALT Alkaline Phosphatase Troponin I Total Protein Albumin Globulin Albumin/Globulin Ratio TSH Urine Source Urine Color Urine Clarity Urine pH Ur Specific [place] Urine Protein Urine Glucose (UA) Urine Ketones Urine Blood Urine Nitrate Urine Bilirubin Urine Urobilinogen Ur Leukocyte Esterase Urine RBC Urine WBC Ur Epithelial Cells Urine Bacteria Urine Test Urine Opiates Screen Urine Methadone Screen Ur Barbiturates Screen Ur Tricyclics Screen Ur Phencyclidine Scrn Amphetamines Screen U Methamphetamines Scrn U Benzodiazepines Scrn U Cocaine Metab Screen U Cannabinoids Screen Serum Ketones NEGATIVE 02/26/19 02/26/19 02/26/19 05:00 05:00 11:25 WBC 22.0 H* D RBC 4.68 Hgb 13.4 Hct 40.2 L MCV 85.8 MCH 28.6 MCHC Differential 33.4 RDW 12.6 Plt Count 343 MPV 7.6 Add Manual Diff YES Band Neutrophils % 0 Neutrophils (Manual) 89 H Lymphocytes 8 L Monocytes 3 Eosinophils 0 Basophils 0 Platelet Estimate ADEQUATE D-Dimer Specimen Source Sample Site pH pCO2 pO2 HCO3 Base Excess O2 Saturation Marquise Test Vent Rate Inspired O2 Tidal Volume PEEP Pressure (ins/psv/peep) Critical Value Sodium 135 L Potassium 4.0 Chloride 106 Carbon Dioxide 20.2 L Anion Gap 12.8 BUN 9 Creatinine 0.6 Est GFR ( Amer) > 60.0 Est GFR (Non-Af Amer) > 60.0 BUN/Creatinine Ratio 15.0 Glucose 165 H D POC Glucose 142 H Calcium 9.2 Total Bilirubin AST ALT Alkaline Phosphatase Troponin I Total Protein Albumin Globulin Albumin/Globulin Ratio TSH Urine Source Urine Color Urine Clarity Urine pH Ur Specific [place] Urine Protein Urine Glucose (UA) Urine Ketones Urine Blood Urine Nitrate Urine Bilirubin Urine Urobilinogen Ur Leukocyte Esterase Urine RBC Urine WBC Ur Epithelial Cells Urine Bacteria Urine Test Urine Opiates Screen Urine Methadone Screen Ur Barbiturates Screen Ur Tricyclics Screen Ur Phencyclidine Scrn Amphetamines Screen U Methamphetamines Scrn U Benzodiazepines Scrn U Cocaine Metab Screen U Cannabinoids Screen Serum Ketones - Assessment Assessment: #Leukocytosis #Asthma Exacerbation #Anxiety #Elevated glucose likely from use of steroids for the last 2 weeks - Plan Plan: AM labs continue to monitor wbc and glucose continue current treatment continue to monitor VS continue to monitor I/Os continue to collaborate and follow up recs from consulting physicians and interdisciplinary team.
[2019-02-26] MEDS: Albuterol/Ipratropium Neb 3 ML AERS HHN SCH (18:54)
[2019-02-26] MEDS ORDERED: [UNRECOGNIZED DRUG - OTHER] INH SCH (20:00)
[2019-02-26] MEDS: SYMBICORT INHALER INH SCH (20:34)
[2019-02-27] MEDS: Albuterol/Ipratropium Neb 3 ML AERS HHN SCH ×4 (00:55→18:30)
[2019-02-27 05:36] LABS: ALB/GLOB RATIO 1.6 (1.0-1.8); ALBUMIN 4.2 gm/dL (3.7-5.3); ALKALINE PHOSPHATASE 65 U/L (34-104); BILIRUBIN,TOTAL 0.5 mg/dL (0.3-1.0); BUN - UREA NITROGEN 15 mg/dL (7-25); CALCIUM SERUM 9.1 mg/dL (8.6-10.3); CHLORIDE 105 mEq/L (98-107); CREATININE - SERUM 0.7 mg/dL (0.6-1.2); GFR AFRICAN-AMERICAN > 60.0 ml/min (>90); GFR NON AFRICAN-AMERICAN > 60.0 ml/min; GLUCOSE 168 mg/dL (70-105); HEMATOCRIT 40.6 % (41.0-60); HEMOGLOBIN 13.4 gm/dL (12-16); MEAN CELL VOLUME 86.9 fl (81-100); MEAN CORPUSCULAR HEMOGLOBIN 28.6 pg (27.0-31.0); MEAN PLATELET VOLUME 8.7 fl; PLATELET COUNT 346 Th/cmm (150-400); RED BLOOD COUNT 4.67 Mil/cmm (3.80-5.10); RED CELL DISTRIBUTION WIDTH 12.8 % (11.5-20.0); SGOT 9 U/L (13-39); SGPT/ALT 11 U/L (7-52); SODIUM SERUM 136 mEq/L (136-145); TOTAL PROTEIN,SERUM 6.8 gm/dL (6.0-8.3)
[2019-02-27] MEDS: Levofloxacin 500mg/100mL 500 MG/100 ML BAG IV SCH (05:40)
[2019-02-27 05:48] LABS: WHITE BLOOD COUNT 21.2 Th/cmm (4.8-10.8)
--- NOTE | 2019-02-27 05:54 | Consultation ---
DATE OF CONSULTATION: 02/26/[address] Pierce. Thank you very much Dr. Pierce for this consultation. HISTORY OF PRESENT ILLNESS: This is a 34-year-old female with history of asthma since the age of 23, using Symbicort and ProAir inhaler at home. The patient has also history of anxiety and some other stuff. She has been having increasing shortness of breath and hard to control asthma symptoms. Also living situation, she said in the place, she has had some stress and some triggering factors, cockroaches and other stuff that is trying to get away from to have a better control of her asthma. PAST MEDICAL HISTORY: As above. SOCIAL HISTORY: Denies smoking, drinking, or drug use. REVIEW OF SYSTEMS: GENERAL: Weakness and fatigue. CARDIOVASCULAR: No chest pain or palpitations. GASTROINTESTINAL: No nausea or vomiting. PHYSICAL EXAMINATION: GENERAL: He is awake, alert, not in acute distress. VITAL SIGNS: Temperature 98.4, pulse 95, respirations 18, blood pressure 106/66, and saturation 99%. HEENT: Atraumatic, normocephalic. Pupils are equal to light and accommodation. Ears, nose, and throat normal. NECK: Supple, No JVD CHEST: There is no rhonchi or wheezing bilaterally. HEART: Regular rate and rhythm. ABDOMEN: Soft. EXTREMITIES: No edema. LABORATORY DATA: WBC 22.0, hemoglobin is 13.4, hematocrit 40.2, and platelets 343. Initial ABGs; pH 7.46, pCO2 22, pO2 is 96, bicarbonate is 15. Sodium is 135, potassium 4.0, BUN is 9, creatinine 0.6. Urine drug screen is negative. Chest x-ray: No acute abnormalities. IMPRESSION: This is a 34-year-old female with asthma exacerbation, appears to be doing well with IV Solu-Medrol, nebulizer treatment. The elevation of the white count most likely related to high-dose steroids. PLAN: 1. Decrease steroids for now. 2. Continue nebulizer treatment and antibiotics p.r.n. 3. May be discharge planning tomorrow if stable. The patient should continue to take Symbicort. Follow up with her hat sprayer, may be an battery test engineer to see if any certain triggers such as above. Also, control her anxiety and emotional issues. Thank you very much for this consultation. I will follow the patient with you. JOB# [id number]
[2019-02-27 08:04] LABS: BAND NEUTROPHILE 0 % (0-10); BASOPHIL 0 % (0-3); EOSINOPHIL 0 % (0-5); LYMPHOCYTE 6 % (20-50); MONOCYTE 4 % (2-10); NEUTROPHILS 90 % (40-80)
[2019-02-27] MEDS: SYMBICORT INHALER INH SCH ×2 (09:19→18:00)
--- NOTE | 2019-02-27 10:05 | Internal Medicine Prog Note ---
Internal Medicine Subjective - Subjective Service Date: 02/27/19 Patient seen and examined:: with staff Patient is:: awake, in bed Patient Complaints of:: other (Hx of Asthma exacerbation.) Per staff patient has:: no adverse event, no episodes of fall Internal Medicine Objective - Results Result Diagrams: 02/27/19 04:15 02/27/19 04:15 Recent Labs: Laboratory Last Values WBC 21.2 Th/cmm (4.8-10.8) H* 02/27/19 04:15 RBC 4.67 Mil/cmm (3.80-5.10) 02/27/19 04:15 Hgb 13.4 gm/dL (12-16) 02/27/19 04:15 Hct 40.6 % (41.0-60) L 02/27/19 04:15 MCV 86.9 fl (81-100) 02/27/19 04:15 MCH 28.6 pg (27.0-31.0) 02/27/19 04:15 MCHC Differential 33.0 pg (28.0-36.0) 02/27/19 04:15 RDW 12.8 % (11.5-20.0) 02/27/19 04:15 Plt Count 346 Th/cmm (150-400) 02/27/19 04:15 MPV 8.7 fl 02/27/19 04:15 Add Manual Diff YES 02/27/19 04:15 Band Neutrophils % 0 % (0-10) 02/27/19 04:15 Neutrophils (Manual) 90 % (40-80) H 02/27/19 04:15 Lymphocytes 6 % (20-50) L 02/27/19 04:15 Monocytes 4 % (2-10) 02/27/19 04:15 Eosinophils 0 % (0-5) 02/27/19 04:15 Basophils 0 % (0-3) 02/27/19 04:15 Platelet Estimate ADEQUATE (NORMAL) 02/26/19 05:00 D-Dimer 227 ng/mL (100-400) 02/25/19 15:40 Specimen Source ARTERIAL 02/25/19 19:00 Sample Site Right Radial 02/25/19 19:00 pH 7.467 (7.35-7.45) H 02/25/19 19:00 pCO2 22.0 mmHg (35.0-45.0) L* 02/25/19 19:00 pO2 96.9 mmHg (80.0-100.0) 02/25/19 19:00 HCO3 15.5 mEq/L (20.0-26.0) L 02/25/19 19:00 Base Excess -5.8 mEq/L (-3.0-3.0) L 02/25/19 19:00 O2 Saturation 97.9 % (92.0-100.0) 02/25/19 19:00 Marquise Test Positive 02/25/19 19:00 Vent Rate N/A 02/25/19 19:00 Inspired O2 21 02/25/19 19:00 Tidal Volume N/A 02/25/19 19:00 PEEP N/A 02/25/19 19:00 Pressure (ins/psv/peep) N/A 02/25/19 19:00 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,BROOM STITCHER 02/25/19 19:00 Sodium 136 mEq/L (136-145) 02/27/19 04:15 Potassium 4.0 mEq/L (3.5-5.1) 02/27/19 04:15 Chloride 105 mEq/L (98-107) 02/27/19 04:15 Carbon Dioxide 22.0 mEq/L (21.0-31.0) 02/27/19 04:15 Anion Gap 13.0 (7.0-16.0) 02/27/19 04:15 BUN 15 mg/dL (7-25) 02/27/19 04:15 Creatinine 0.7 mg/dL (0.6-1.2) 02/27/19 04:15 Est GFR ( Amer) > 60.0 ml/min (>90) 02/27/19 04:15 Est GFR (Non-Af Amer) > 60.0 ml/min 02/27/19 04:15 BUN/Creatinine Ratio 21.4 02/27/19 04:15 Glucose 168 mg/dL (70-105) H 02/27/19 04:15 POC Glucose 142 MG/DL (70 - 105) H 02/26/19 11:25 Calcium 9.1 mg/dL (8.6-10.3) 02/27/19 04:15 Total Bilirubin 0.5 mg/dL (0.3-1.0) 02/27/19 04:15 AST 9 U/L (13-39) L 02/27/19 04:15 ALT 11 U/L (7-52) 02/27/19 04:15 Alkaline Phosphatase 65 U/L (34-104) 02/27/19 04:15 Troponin I < 0.01 ng/mL (0.01-0.05) L 02/25/19 15:40 Total Protein 6.8 gm/dL (6.0-8.3) 02/27/19 04:15 Albumin 4.2 gm/dL (3.7-5.3) 02/27/19 04:15 Globulin 2.6 gm/dL 02/27/19 04:15 Albumin/Globulin Ratio 1.6 (1.0-1.8) 02/27/19 04:15 TSH 0.72 uIU/ml (0.34-5.60) 02/25/19 15:40 Urine Source CLEAN C 02/25/19 15:45 Urine Color YELLOW 02/25/19 15:45 Urine Clarity CLEAR (CLEAR) 02/25/19 15:45 Urine pH 5.5 (4.6 - 8.0) 02/25/19 15:45 Ur Specific [place] 1.025 (1.005-1.030) 02/25/19 15:45 Urine Protein NEGATIVE mg/dL (NEGATIVE) 02/25/19 15:45 Urine Glucose (UA) >=1000 mg/dL (NEGATIVE) H 02/25/19 15:45 Urine Ketones 40 mg/dL (NEGATIVE) H 02/25/19 15:45 Urine Blood SMALL (NEGATIVE) H 02/25/19 15:45 Urine Nitrate NEGATIVE (NEGATIVE) 02/25/19 15:45 Urine Bilirubin NEGATIVE (NEGATIVE) 02/25/19 15:45 Urine Urobilinogen 0.2 E.U./dL (0.2 - 1.0) 02/25/19 15:45 Ur Leukocyte Esterase SMALL (NEGATIVE) H 02/25/19 15:45 Urine RBC 2-5 /hpf (0-5) 02/25/19 15:45 Urine WBC 6-10 /hpf (0-5) H 02/25/19 15:45 Ur Epithelial Cells MODERATE /lpf (FEW) 02/25/19 15:45 Urine Bacteria 1+ /hpf (NONE SEEN) H 02/25/19 15:45 Urine Test NEGATIVE 02/25/19 15:45 Urine Opiates Screen NEGATIVE (NEGATIVE) 02/25/19 17:37 Urine Methadone Screen NEGATIVE (NEGATIVE) 02/25/19 17:37 Ur Barbiturates Screen NEGATIVE (NEGATIVE) 02/25/19 17:37 Ur Tricyclics Screen NEGATIVE (NEGATIVE) 02/25/19 17:37 Ur Phencyclidine Scrn NEGATIVE (NEGATIVE) 02/25/19 17:37 Amphetamines Screen NEGATIVE (NEGATIVE) 02/25/19 17:37 U Methamphetamines Scrn NEGATIVE (NEGATIVE) 02/25/19 17:37 U Benzodiazepines Scrn NEGATIVE (NEGATIVE) 02/25/19 17:37 U Cocaine Metab Screen NEGATIVE (NEGATIVE) 02/25/19 17:37 U Cannabinoids Screen NEGATIVE (NEGATIVE) 02/25/19 17:37 Serum Ketones NEGATIVE (NEGATIVE) 02/25/19 18:47 - Physical Exam Vitals and I&O: Vital Signs Temp 97.9 F 02/27/19 08:00 Pulse 103 02/27/19 08:00 Resp 18 02/27/19 08:00 BP 113/70 02/27/19 08:00 Pulse Ox 98 02/27/19 08:00 Intake & Output 02/26/19 02/27/19 02/27/19 18:59 06:59 18:59 Intake Total 600 200 Balance 600 200 Weight (lbs) 79.379 kg 79.379 kg Intake: Oral 600 200 Other: # Voids 3 # Bowel Movements 0 Weight Source Bedscale Bedscale Active Medications: Current Medications Albuterol/Ipratropium (Duoneb Neb) 3 ml HHN Q2H PRN PRN Reason: Shortness of Breath or Wheeze Stop: 04/27/19 09:10 Last Admin: 02/26/19 09:22 Dose: 3 ml Albuterol/Ipratropium (Duoneb Neb) 3 ml HHN Q6HRT FELIPE Stop: 04/27/19 18:59 Last Admin: 02/27/19 07:09 Dose: 3 ml Hydroxyzine HCl (Atarax) 25 mg PO Q6H PRN; Protocol PRN Reason: Anxiety Stop: 04/27/19 09:41 Levofloxacin (Levaquin Pb) 500 mg in 100 mls @ 100 mls/hr IV Q24HR [facility] Stop: 04/27/19 04:59 Last Admin: 02/27/19 05:40 Dose: 100 mls/hr Methylprednisolone Sodium Succinate (Solu-Medrol) 40 mg IVP Q8H [facility] [place] Stop: 02/27/19 13:47 Last Admin: 02/27/19 05:43 Dose: 40 mg Pantoprazole Sodium (Protonix) 40 mg IVP DAILY [facility] [place] Stop: 04/28/19 00:39 Last Admin: 02/27/19 00:53 Dose: 40 mg Symbicort Inhaler 1 INH BID [facility] Stop: 04/27/19 19:59 Last Admin: 02/27/19 09:19 Dose: Not Given Physical Exam: 34 y/o female patient was admitted due to Chest pain, Acidosis, Asthma exacerbation, Leukocytosis, Anxiety, Diabetes type 2 and UTI. Patient is currently being treated with steroids, Inhaler and Antibiotic. General: weak HEENT: NC/AT, PERRLA Neck: Supple, No JVD Lungs: CTAB Cardiovascular: RRR, Normal S1 Abdomen: soft Extremities: clear Neurological: no change Internal Medicine Assmt/Plan - Assessment Assessment: Asthma exacerbation. Leukocytosis. Anxiety. GERD. Diabetes type II. Elevated glucose. UTI. Hx of Migraine. Hx of Vertigo. Hx of Allergies. Nutritional Asmnt/Malnutr-PDOC - Dietary Evaluation Malnutrition Findings (Please click <Entered> for more info): see orders.
[2019-02-28] MEDS: Albuterol/Ipratropium Neb 3 ML AERS HHN SCH ×3 (02:12→13:08)
[2019-02-28] MEDS: Levofloxacin 500mg/100mL 500 MG/100 ML BAG IV SCH (04:06)
[2019-02-28 04:33] LABS: HEMATOCRIT 40.3 % (41.0-60); HEMOGLOBIN 13.2 gm/dL (12-16); MEAN CELL VOLUME 86.3 fl (81-100); MEAN CORPUSCULAR HEMOGLOBIN 28.2 pg (27.0-31.0); MEAN CORPUSCULAR HGB CONC 32.7 pg (28.0-36.0); MEAN PLATELET VOLUME 7.9 fl; PLATELET COUNT 345 Th/cmm (150-400); RED BLOOD COUNT 4.67 Mil/cmm (3.80-5.10); RED CELL DISTRIBUTION WIDTH 12.6 % (11.5-20.0)
[2019-02-28 04:53] LABS: WHITE BLOOD COUNT 19.3 Th/cmm (4.8-10.8)
[2019-02-28 06:04] LABS: ALB/GLOB RATIO 1.7 (1.0-1.8); ALBUMIN 4.2 gm/dL (3.7-5.3); ALKALINE PHOSPHATASE 57 U/L (34-104); ANION GAP 14.8 (7.0-16.0); BILIRUBIN,TOTAL 0.5 mg/dL (0.3-1.0); BUN - UREA NITROGEN 14 mg/dL (7-25); CALCIUM SERUM 9.2 mg/dL (8.6-10.3); CARBON DIOXIDE 23.8 mEq/L (21.0-31.0); CHLORIDE 103 mEq/L (98-107); CREATININE - SERUM 0.7 mg/dL (0.6-1.2); GFR AFRICAN-AMERICAN > 60.0 ml/min (>90); GFR NON AFRICAN-AMERICAN > 60.0 ml/min; GLUCOSE 129 mg/dL (70-105); POTASSIUM SERUM 3.6 mEq/L (3.5-5.1); SGOT 7 U/L (13-39); SGPT/ALT 10 U/L (7-52); SODIUM SERUM 138 mEq/L (136-145); TOTAL PROTEIN,SERUM 6.7 gm/dL (6.0-8.3)
[2019-02-28 06:56] LABS: BAND NEUTROPHILE 0 % (0-10); NEUTROPHILS 90 % (40-80)
[2019-02-28 06:57] LABS: BASOPHIL 0 % (0-3); EOSINOPHIL 0 % (0-5); LYMPHOCYTE 8 % (20-50); MONOCYTE 2 % (2-10)
--- NOTE | 2019-02-28 08:28 | Infectious Disease Prog Note ---
Infectious Disease Subjective - Review of Systems Service Date: 02/28/19 Subjective: There is no new change, no fever. Infectious Disease Objective - Results Result Diagrams: 02/28/19 04:25 02/28/19 04:25 Recent Labs: Laboratory Last Values WBC 19.3 Th/cmm (4.8-10.8) H 02/28/19 04:25 RBC 4.67 Mil/cmm (3.80-5.10) 02/28/19 04:25 Hgb 13.2 gm/dL (12-16) 02/28/19 04:25 Hct 40.3 % (41.0-60) L 02/28/19 04:25 MCV 86.3 fl (81-100) 02/28/19 04:25 MCH 28.2 pg (27.0-31.0) 02/28/19 04:25 MCHC Differential 32.7 pg (28.0-36.0) 02/28/19 04:25 RDW 12.6 % (11.5-20.0) 02/28/19 04:25 Plt Count 345 Th/cmm (150-400) 02/28/19 04:25 MPV 7.9 fl 02/28/19 04:25 Add Manual Diff YES 02/28/19 04:25 Band Neutrophils % 0 % (0-10) 02/28/19 04:25 Neutrophils (Manual) 90 % (40-80) H 02/28/19 04:25 Lymphocytes 8 % (20-50) L 02/28/19 04:25 Monocytes 2 % (2-10) 02/28/19 04:25 Eosinophils 0 % (0-5) 02/28/19 04:25 Basophils 0 % (0-3) 02/28/19 04:25 Platelet Estimate ADEQUATE (NORMAL) 02/26/19 05:00 D-Dimer 227 ng/mL (100-400) 02/25/19 15:40 Specimen Source ARTERIAL 02/25/19 19:00 Sample Site Right Radial 02/25/19 19:00 pH 7.467 (7.35-7.45) H 02/25/19 19:00 pCO2 22.0 mmHg (35.0-45.0) L* 02/25/19 19:00 pO2 96.9 mmHg (80.0-100.0) 02/25/19 19:00 HCO3 15.5 mEq/L (20.0-26.0) L 02/25/19 19:00 Base Excess -5.8 mEq/L (-3.0-3.0) L 02/25/19 19:00 O2 Saturation 97.9 % (92.0-100.0) 02/25/19 19:00 Marquise Test Positive 02/25/19 19:00 Vent Rate N/A 02/25/19 19:00 Inspired O2 21 02/25/19 19:00 Tidal Volume N/A 02/25/19 19:00 PEEP N/A 02/25/19 19:00 Pressure (ins/psv/peep) N/A 02/25/19 19:00 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,[employer] 02/25/19 19:00 Sodium 138 mEq/L (136-145) 02/28/19 04:25 Potassium 3.6 mEq/L (3.5-5.1) 02/28/19 04:25 Chloride 103 mEq/L (98-107) 02/28/19 04:25 Carbon Dioxide 23.8 mEq/L (21.0-31.0) 02/28/19 04:25 Anion Gap 14.8 (7.0-16.0) 02/28/19 04:25 BUN 14 mg/dL (7-25) 02/28/19 04:25 Creatinine 0.7 mg/dL (0.6-1.2) 02/28/19 04:25 Est GFR ( Amer) > 60.0 ml/min (>90) 02/28/19 04:25 Est GFR (Non-Af Amer) > 60.0 ml/min 02/28/19 04:25 BUN/Creatinine Ratio 20.0 02/28/19 04:25 Glucose 129 mg/dL (70-105) H 02/28/19 04:25 POC Glucose 142 MG/DL (70 - 105) H 02/26/19 11:25 Calcium 9.2 mg/dL (8.6-10.3) 02/28/19 04:25 Total Bilirubin 0.5 mg/dL (0.3-1.0) 02/28/19 04:25 AST 7 U/L (13-39) L 02/28/19 04:25 ALT 10 U/L (7-52) 02/28/19 04:25 Alkaline Phosphatase 57 U/L (34-104) 02/28/19 04:25 Troponin I < 0.01 ng/mL (0.01-0.05) L 02/25/19 15:40 Total Protein 6.7 gm/dL (6.0-8.3) 02/28/19 04:25 Albumin 4.2 gm/dL (3.7-5.3) 02/28/19 04:25 Globulin 2.5 gm/dL 02/28/19 04:25 Albumin/Globulin Ratio 1.7 (1.0-1.8) 02/28/19 04:25 TSH 0.72 uIU/ml (0.34-5.60) 02/25/19 15:40 Urine Source CLEAN C 02/25/19 15:45 Urine Color YELLOW 02/25/19 15:45 Urine Clarity CLEAR (CLEAR) 02/25/19 15:45 Urine pH 5.5 (4.6 - 8.0) 02/25/19 15:45 Ur Specific [place] 1.025 (1.005-1.030) 02/25/19 15:45 Urine Protein NEGATIVE mg/dL (NEGATIVE) 02/25/19 15:45 Urine Glucose (UA) >=1000 mg/dL (NEGATIVE) H 02/25/19 15:45 Urine Ketones 40 mg/dL (NEGATIVE) H 02/25/19 15:45 Urine Blood SMALL (NEGATIVE) H 02/25/19 15:45 Urine Nitrate NEGATIVE (NEGATIVE) 02/25/19 15:45 Urine Bilirubin NEGATIVE (NEGATIVE) 02/25/19 15:45 Urine Urobilinogen 0.2 E.U./dL (0.2 - 1.0) 02/25/19 15:45 Ur Leukocyte Esterase SMALL (NEGATIVE) H 02/25/19 15:45 Urine RBC 2-5 /hpf (0-5) 02/25/19 15:45 Urine WBC 6-10 /hpf (0-5) H 02/25/19 15:45 Ur Epithelial Cells MODERATE /lpf (FEW) 02/25/19 15:45 Urine Bacteria 1+ /hpf (NONE SEEN) H 02/25/19 15:45 Urine Test NEGATIVE 02/25/19 15:45 Urine Opiates Screen NEGATIVE (NEGATIVE) 02/25/19 17:37 Urine Methadone Screen NEGATIVE (NEGATIVE) 02/25/19 17:37 Ur Barbiturates Screen NEGATIVE (NEGATIVE) 02/25/19 17:37 Ur Tricyclics Screen NEGATIVE (NEGATIVE) 02/25/19 17:37 Ur Phencyclidine Scrn NEGATIVE (NEGATIVE) 02/25/19 17:37 Amphetamines Screen NEGATIVE (NEGATIVE) 02/25/19 17:37 U Methamphetamines Scrn NEGATIVE (NEGATIVE) 02/25/19 17:37 U Benzodiazepines Scrn NEGATIVE (NEGATIVE) 02/25/19 17:37 U Cocaine Metab Screen NEGATIVE (NEGATIVE) 02/25/19 17:37 U Cannabinoids Screen NEGATIVE (NEGATIVE) 02/25/19 17:37 Serum Ketones NEGATIVE (NEGATIVE) 02/25/19 18:47 - Physical Exam Vitals and I&O: Vital Signs Temp 97.4 F 02/28/19 07:47 Pulse 70 02/28/19 07:47 Resp 19 02/28/19 07:47 BP 108/63 02/28/19 07:47 Pulse Ox 100 02/28/19 07:47 Intake & Output 02/27/19 02/28/19 02/28/19 18:59 06:59 18:59 Intake Total 900 Balance 900 Weight (lbs) 79.379 kg 79.379 kg Intake: Intake, IV Amount 100 Levofloxacin 500mg/100mL 100 500 mg In 100 ml @ 100 mls/hr IV Q24HR [facility] Rx#: [id number] Oral 800 Other: # Voids 4 Weight Source Bedscale Bedscale Active Medications: Current Medications Albuterol/Ipratropium (Duoneb Neb) 3 ml HHN Q2H PRN PRN Reason: Shortness of Breath or Wheeze Stop: 04/27/19 09:10 Last Admin: 02/26/19 09:22 Dose: 3 ml Albuterol/Ipratropium (Duoneb Neb) 3 ml HHN Q6HRT [facility] Stop: 04/27/19 18:59 Last Admin: 02/28/19 06:51 Dose: 3 ml Hydroxyzine HCl (Atarax) 25 mg PO Q6H PRN; Protocol PRN Reason: Anxiety Stop: 04/27/19 09:41 Levofloxacin (Levaquin Pb) 500 mg in 100 mls @ 100 mls/hr IV Q24HR [facility] Stop: 04/27/19 04:59 Last Infusion: 02/28/19 05:06 Dose: Infused Pantoprazole Sodium (Protonix) 40 mg IVP DAILY [facility] Stop: 04/28/19 00:39 Last Admin: 02/27/19 10:00 Dose: 40 mg Symbicort Inhaler 1 INH BID [facility] Stop: 04/27/19 19:59 Last Admin: 02/27/19 18:00 Dose: Not Given General: no acute distress, well developed, well nourished HEENT: atraumatic, normocephalic, PERRLA Neck: supple, no thyromegaly Cardiovascular: S1S2, regular Lungs: clear to auscultation bilaterally, clear to percussion Abdomen: soft, no tender, no distended Extremities: no cyanosis, no clubbing, no edema Neurological: awake, alert, oriented Skin: intact Infectious Disease Assmt/Plan - Assessment Assessment: 1. Leukocytosis. reactive versus, sepsis. 2. Asthma exacerbation. 3. DM2. 4. Anxiety sdisorder. 5. UTI. - Plan Plan: Continue levaquin, may change it to po for 7 more days. Nutritional Asmnt/Malnutr-PDOC - Dietary Evaluation Malnutrition Findings (Please click <Entered> for more info): Nutritional Asmnt/Malnutrition Start: 02/27/19 11: 58 Text: Status: Complete Freq: Protocol: Document 02/27/19 11:58 KELLI (Rec: 02/27/19 12:12 MMLORRI MCLEOD- [email or web address]) Nutritional Asmnt/Malnutrition Patient General Information Nutritional Screening High Risk Consult Diagnosis Chest pain, tachycardia, acidosis Pertinent Medical Hx/Surgical Hx Asthma, GERD, Anxiety Subjective Information Consult received: BG on admission 311. Spoke with patient; friends at bedside. Patient states she does not follow any diet, tolerating current diet. Noted outisde food/snacks at bedside. Tolerating current diet without difficulty. Current Diet Order/ Nutrition Support Regular Patient / S.O Not Indicated Pertinent Medications solu-medrol, protonix Pertinent Labs (02/27) Glucose 142-311 Nutritional Hx/Data Height 1.57 m Height (Calculated Centimeters) 157.5 Current Weight (lbs) 79.379 kg Weight (Calculated Kilograms) 79.4 Weight (Calculated Grams) 10443.7 [place] Body Weight 110 % [place] Body Weight 159 Body Mass Index (BMI) 32.0 Recent Weight Change No Weight Status Obese GI Symptoms GI Symptoms None Last BM none noted since admission Difficult in: None Food Allergies No Cultural/Ethnic/Nondenominational Belief none indicated Usual diet at home unknown Skin Integrity/Comment: [place], intact Current %PO Good (75-100%) Estimated Nutritional Goals BEE in Kcals: Adj wt of IBW Calories/Kcals/Kg 57.3kg Adj wt Kcals Calculated ~1529-6800 kcal/day (25-30 kcal/kg) Protein: Adj wt of IBW Protein g/k-1.2 gm/kg Protein Calculated ~60-70 gm/day Fluid: ml ~8382-4185 kcal/day (1 ml/kcal ) Nutritional Problem 1. Problem Problem Altered nutrition related lab values related to Etiology hyperglycemia (On Solu-medrol, no hx of DM in EMR) Signs/Symptoms: Glucose 142-311 Intervention/Recommendation Comments 1. Consider modifying diet to 45gm CCHO for optimal glycemic control at this time. Expected Outcomes/Goals Expected Outcomes/Goals PO intake to meet >75% of nutritional needs, weight stability or trend toward ideal body weight, skin intact , nutrition related labs to approach WNL. F/U MR 03/02-03/04
[2019-02-28] MEDS: SYMBICORT INHALER INH SCH (08:30)
== END 2019-02-28 13:00 | disposition home or self-care (01) | DRG 872 ==
LOC: ER 15:09 → TELE 20:14
PROVIDERS: ADMIT Internal Medicine; ATTEND Internal Medicine
DX: A41.9 Sepsis, unspecified organism (principal); N39.0 Urinary tract infection, site not specified; E87.2 Acidosis; J45.901 Unspecified asthma with (acute) exacerbation; E11.9 Type 2 diabetes mellitus without complications; R00.0 Tachycardia, unspecified; F41.9 Anxiety disorder, unspecified; K21.9 Gastro-esophageal reflux disease without esophagitis; D72.829 Elevated white blood cell count, unspecified; G43.909 Migraine, unspecified, not intractable, without status migrainosus; Z82.49 Family history of ischemic heart disease and other diseases of the circulatory system; Z83.3 Family history of diabetes mellitus
CPT/HCPCS: 36415-UA; 36600-90; 71045-TC; 80048-TC; 80053-TC; 80307; 81001-TC; 81025-TC; 82010-TC; 82803-TC; 82948-90; 83036-90; 84443-TC; 84484-TC; 85007-TC; 85025-TC; 85379-TC; 93005; 94640; 94760; C9113; J0696; J1956; J2930; J7030; J7070

== ENCOUNTER 2019-03-12 02:22 | Emergency (ER) | payer OTHER ==
[2019-03-12 03:09] LABS: URINE SOURCE RANDOM
--- NOTE | 2019-03-12 03:17 | ED Physician Chart ---
ED Chief Complaint/HPI - Patient Information Date Seen:: 03/12/19 Time Seen:: 02:29 Chief Complaint:: chest pain History of Present Illness:: this is a 34 yo female who states that she has chest pain that started about an hour prior to arrival, non radiating without sob, dizziness and diaphoresis. she states that she painful urination with frequency. she denies nausea, fever and vomiting. Allergies:: Allergies Allergy/AdvReac Type Severity Reaction Status Date / Time No Known Allergies Allergy Verified 02/19/19 20:02 Vitals:: Vital Signs - 8 hr 03/12/19 03/12/19 02:22 02:57 Temp 98.4 F 98.5 F HR 91 78 RR 19 20 BP 123/77 115/75 O2 Sat % 98 100 Historian:: Patient Review:: Nurse's Note Reviewed, Old Chart Reviewed ED Review of Systems - Review of Systems General/Constitutional: No fever, No chills, No weight loss, No weakness, No diaphoresis, No edema, No loss of appetite Skin: No skin lesions, No rash, No bruising Head: No headache, No light-headedness Eyes: No loss of vision, No pain, No diplopia ENT: No earache, No nasal drainage, No sore throat, No tinnitus Neck: No neck pain, No swelling, No thyromegaly, No stiffness, No mass noted Cardio Vascular: Chest pain, No palpitations, No PND, No orthopnea, No edema Pulmonary: No SOB, No cough, No sputum, No wheezing GI: No nausea, No vomiting, No diarrhea, No pain, No melena, No hematochezia, No constipation, No hematemesis G/U: Dysuria, Frequency, No hematuria Musculoskeletal: No bone or joint pain, No back pain, No muscle pain Endocrine: No polyuria, No polydipsia Psychiatric: No prior psych history, No depression, No anxiety, No suicidal ideation Hematopoietic: No bruising, No lymphadenopathy Allergic/Immuno: No urticaria, No angioedema Neurological: No syncope, No focal symptoms, No weakness, No paresthesia, No headache, No seizure, No dizziness, No confusion, No vertigo ED Past Medical History - Past Medical History Obtainable: Yes Past Medical History: Asthma/COPD, PUD/GERD, Other (anxiety) Family History: None Social History: Non Smoker, No Alcohol, No Drug Use, Surgical History: other (liposustion of the abdomen) Family Medical History - Family Member Father History Unknown: Yes Hx Family Hypertension: Yes Hx Family Diabetes: Yes ED Physical Exam - Physical Examination General/Constitutional: Awake, Well-developed, well-nourished, Alert, No distress, GCS 15, Non-toxic appearing, Ambulatory Head: Atraumatic Eyes: Lids, conjuctiva normal, PERRL, EOMI Skin: Nl inspection, No rash, No skin lesions, No ecchymosis, Well hydrated, No lymphadenopathy ENMT: External ears, nose nl, Nasal exam nl, Lips, teeth, gums nl Neck: Nontender, Full ROM w/o pain, No JVD, No nuchal rigidity, No bruit, No mass, No stridor Respiratory: Nl effort/Exclusion, Clear to Auscultation, No Wheeze/Rhonchi/Rales Cardio Vascular: RRR, No murmur, gallop, rubs, NL S1 S2 GI: No tenderness/rebounding/guarding, No organomegaly, No hernia, Normal BS's, Nondistended, No mass/bruits, No Mc[place]ney tenderness : No CVA tenderness Extremities: No tenderness or effusion, Full ROM, normal strength in all extremities, No edema, Normal digits & nails Neuro/Psych: Alert/oriented, DTR's symmetric, Normal sensory exam, Normal motor strength, Judgement/insight normal, Mood normal, Normal gait, No focal deficits Misc: Normal back, No paraspinal tenderness ED Labs/Radiology/EKG Results - Lab Results Results: Abnormal Lab Results 03/12/19 03/12/19 03/12/19 02:40 02:40 02:40 WBC RBC Hgb Hct MCV MCH MCHC Differential RDW Plt Count MPV Neutrophils % Lymphocytes % Monocytes % Eosinophils % Basophils % Sodium Potassium Chloride Carbon Dioxide Anion Gap BUN Creatinine Est GFR ( Amer) Est GFR (Non-Af Amer) BUN/Creatinine Ratio Glucose Calcium Troponin I Urine Source RANDOM Urine Color YELLOW Urine Clarity CLEAR Urine pH 6.0 Ur Specific [place] 1.015 Urine Protein NEGATIVE Urine Glucose (UA) NEGATIVE Urine Ketones NEGATIVE Urine Blood NEGATIVE Urine Nitrate NEGATIVE Urine Bilirubin NEGATIVE Urine Urobilinogen 0.2 Ur Leukocyte Esterase NEGATIVE Urine RBC 0-2 Urine WBC 0-2 Ur Epithelial Cells FEW Urine Bacteria FEW Urine Test NEGATIVE Urine Opiates Screen NEGATIVE Urine Methadone Screen NEGATIVE Ur Barbiturates Screen NEGATIVE Ur Tricyclics Screen NEGATIVE Ur Phencyclidine Scrn NEGATIVE Amphetamines Screen NEGATIVE U Methamphetamines Scrn NEGATIVE U Benzodiazepines Scrn NEGATIVE U Cocaine Metab Screen NEGATIVE U Cannabinoids Screen NEGATIVE 03/12/19 03/12/19 03/12/19 03:05 03:05 03:05 WBC 9.9 RBC 4.92 Hgb 14.1 Hct 42.3 MCV 85.9 MCH 28.6 MCHC Differential 33.3 RDW 12.7 Plt Count 323 MPV 8.3 Neutrophils % 69.5 Lymphocytes % 24.5 Monocytes % 2.4 Eosinophils % 2.4 Basophils % 1.2 Sodium 137 Potassium 3.6 Chloride 104 Carbon Dioxide 25.1 Anion Gap 11.5 BUN 8 Creatinine 0.7 Est GFR ( Amer) > 60.0 Est GFR (Non-Af Amer) > 60.0 BUN/Creatinine Ratio 11.4 Glucose 116 H Calcium 9.6 Troponin I 0.01 Urine Source Urine Color Urine Clarity Urine pH Ur Specific [place] Urine Protein Urine Glucose (UA) Urine Ketones Urine Blood Urine Nitrate Urine Bilirubin Urine Urobilinogen Ur Leukocyte Esterase Urine RBC Urine WBC Ur Epithelial Cells Urine Bacteria Urine Test Urine Opiates Screen Urine Methadone Screen Ur Barbiturates Screen Ur Tricyclics Screen Ur Phencyclidine Scrn Amphetamines Screen U Methamphetamines Scrn U Benzodiazepines Scrn U Cocaine Metab Screen U Cannabinoids Screen - EKG Interpretations EKG Time:: 02:35 Rate & Rhythm: rate =85, sinus [place]: right axis ED Assessment - Assessment General Assessment: urinary tract infection ED Septic Shock - . Is Septic Shock (SBP<90, OR Lactate>4 mmol\L) present?: No - <6hrs of presentation: Vital Signs: Vital Signs - 8 hr 03/12/19 03/12/19 02:22 02:57 Temp 98.4 F 98.5 F HR 91 78 RR 19 20 BP 123/77 115/75 O2 Sat % 98 100 ED Reassessment (Disposition) - Reassessment Reassessment Condition:: Improved - Diagnosis Diagnosis:: urinary tract infection chest wall pain - Aftercare/Follow up Instructions Aftercare/Follow-Up Instructions:: Counseled pt regarding lab results/diagnosis & need follow up, Refer to Discharge Instructions, Counseled pt & family regarding lab results/diagnosis & need follow up - Patient Disposition Discharge/Transfer:: Home Condition at Disposition:: Improved
[2019-03-12 03:18] LABS: % BASOPHILS 1.2 % (0.0-2.0); % EOSINOPHILS 2.4 % (0.0-5.0); % LYMPHOCYTES 24.5 % (20.0-50.0); % MONOCYTES 2.4 % (2.0-10.0); % NEUTROPHILS 69.5 % (40.0-80.0); BASOPHILE ABSOLUTE 0.1 Th/cumm (0-0.2); EOSINOPHILE ABSOLUTE 0.2 Th/cmm (0.1-0.4); HEMATOCRIT 42.3 % (41.0-60); HEMOGLOBIN 14.1 gm/dL (12-16); LYMPHOCYTE ABSOLUTE 2.4 Th/cmm (1.5-3.0); MEAN CELL VOLUME 85.9 fl (81-100); MEAN CORPUSCULAR HEMOGLOBIN 28.6 pg (27.0-31.0); MEAN CORPUSCULAR HGB CONC 33.3 pg (28.0-36.0); MONOCYTE ABSOLUTE 0.2 Th/cmm (0.3-1.0); PLATELET COUNT 323 Th/cmm (150-400); RED BLOOD COUNT 4.92 Mil/cmm (3.80-5.10); RED CELL DISTRIBUTION WIDTH 12.7 % (11.5-20.0); WHITE BLOOD COUNT 9.9 Th/cmm (4.8-10.8)
[2019-03-12 03:19] LABS: URINE BILIRUBIN NEGATIVE (NEGATIVE); URINE BLOOD NEGATIVE (NEGATIVE); URINE GLUCOSE (UA) NEGATIVE (NEGATIVE); URINE KETONE NEGATIVE (NEGATIVE); URINE LEUKOCYTE ESTERASE NEGATIVE (NEGATIVE); URINE NITRATE NEGATIVE (NEGATIVE); URINE PROTEIN NEGATIVE (NEGATIVE); URINE UROBILINOGEN 0.2 E.U./dL (0.2 - 1.0)
[2019-03-12 03:25] LABS: ANION GAP 11.5 (7.0-16.0); BUN - UREA NITROGEN 8 mg/dL (7-25); CALCIUM SERUM 9.6 mg/dL (8.6-10.3); CARBON DIOXIDE 25.1 mEq/L (21.0-31.0); CHLORIDE 104 mEq/L (98-107); CREATININE - SERUM 0.7 mg/dL (0.6-1.2); GFR AFRICAN-AMERICAN > 60.0 ml/min (>90); GFR NON AFRICAN-AMERICAN > 60.0 ml/min; GLUCOSE 116 mg/dL (70-105); POTASSIUM SERUM 3.6 mEq/L (3.5-5.1); SODIUM SERUM 137 mEq/L (136-145)
[2019-03-12 03:30] LABS: URINE BACTERIA FEW /hpf (NONE SEEN); URINE CLARITY CLEAR (CLEAR); URINE COLOR YELLOW; URINE EPITHELIAL CELLS FEW /lpf (FEW); URINE MICROSCOPIC INDICATED? YES; URINE RBC 0-2 /hpf (0-5); URINE WBC 0-2 /hpf (0-5)
[2019-03-12 03:35] LABS: AMPHETAMINE URINE NEGATIVE (NEGATIVE); BARBITURATES URINE NEGATIVE (NEGATIVE); BENZODIAZEPINES QUAL URINE NEGATIVE (NEGATIVE); CANNABINOID THC NEGATIVE (NEGATIVE); COCAINE METABOLITE QUAL URINE NEGATIVE (NEGATIVE); METHADONE URINE NEGATIVE (NEGATIVE); METHAMPHETAMINES QUAL URINE NEGATIVE (NEGATIVE); OPIATES (MORPHINE) QUAL. URINE NEGATIVE (NEGATIVE); PHENCYCLIDINE (PCP) URINE NEGATIVE (NEGATIVE); TRICYCLICS (TCA) QUAL. URINE NEGATIVE (NEGATIVE)
== END 2019-03-12 03:59 | disposition home or self-care (01) ==
LOC: ER 02:22
DX: N39.0 Urinary tract infection, site not specified (principal); R07.89 Other chest pain; J45.909 Unspecified asthma, uncomplicated; K21.9 Gastro-esophageal reflux disease without esophagitis
CPT/HCPCS: 36415-UA; 80048-TC; 80307; 81001-TC; 81025-TC; 84484-TC; 85025-TC; 93005